=== PATIENT | male | born 2000 | race Two or more races ===

== ENCOUNTER 2020-04-30 18:46 | Emergency (ER) | payer BC ==
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
[2020-04-30] MEDS ORDERED: Bacitracin Oint 1 GM U/D Packet TOP ONE (19:52)
[2020-04-30] MEDS ORDERED: Amoxicillin/Clavulanate K 875-125 MG Tab PO ONE (19:52)
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
== END 2020-04-30 20:07 | disposition home or self-care (01) ==
LOC: DL.ED 18:46
DX: S06.0X0A Concussion without loss of consciousness, initial encounter (principal); S60.511A Abrasion of right hand, initial encounter; Y09 Assault by unspecified means
CPT/HCPCS: 70450; 73090-LT; 73130-RT; 99284-25; A9270-GY